=== PATIENT | male | born 1950 | race Caucasian/White ===

== ENCOUNTER 2017-04-07 08:51 | Inpatient (IN) | payer OTHER ==
[~2017-04-07] VITALS: Ht 190.5 cm; Wt 103.0 kg
[2017-04-07] VITALS (13 sets, daily range): BP systolic 107–163; BP diastolic 62–98; PULSE 59–74; RESP 11–20; O2SAT 94–96
--- NOTE | 2017-04-07 08:56 | ED.REPORT ---
HPI-General Illness Date of Service Apr 07, 2017 ED Provider: Patient is a 66-year-old man with obstructive sleep apnea CPAP compliant, hyperlipidemia, and low testosterone treated for 20 years presents to the emergency department via EMS with 9 out of 10 mid sternal chest pain that feels like a pressure which started acutely this morning. Patient's initial episode of chest pain resolved and he was planning to drive himself to the emergency department. When the chest pain returned while feeding the dogs and getting dressed he decided to call EMS. He received 1 dose of sublingual nitroglycerin and 324 mg aspirin enroute. For approximately the last week patient has had moments of tightness in his chest that started as 2-3 times daily and have been increasing. He does not notice any association with activity, and these episodes have resolved on their own. Patient denies headache, back pain, visual changes, nausea, vomiting, abdominal pain, leg tenderness, leg swelling. Nursing Notes Stated Complaint: CHEST PAIN Chief Complaint: Chest Pain Nursing Notes Reviewed: Yes Allergies: Coded Allergies: No Known Allergies (Unverified , 04/07/17) Scheduled Budesonide/Formoterol 80-4.5 mcg Inh (Symbicort 80-4.5 mcg Inh) 120 Puff Inhaler 1 PUFF INHALATION BID Cholecalciferol (Vitamin D3) (Vitamin D3) 5,000 Unit Capsule 5,000 UNIT PO HS Citalopram (Citalopram) 10 Mg Tablet 10 MG PO HS Loratadine (Loratadine) 10 Mg Capsule 10 MG PO HS Montelukast (Montelukast) 10 Mg Tablet 10 MG PO HS Omeprazole (Omeprazole) 20 Mg Capsule.dr 20 MG PO HS Tadalafil (Cialis) 10 Mg Tablet 10 MG PO DAILY As directed by physician Testosterone Cypionate (Testosterone Cypionate) 200 Mg/1 Ml Vial 200 MG IM [id number] Scheduled PRN Albuterol HFA (Proair HFA) 8.5 Gm Hfa.aer.ad 2 PUFFS INHALATION Q4H PRN PRN For Shortness of Breath General Time Seen by MD: 08:56 Chief Complaint Chest pain Hx Obtained From: Patient Arrived By: Ambulance Past Medical History Past Medical History Obstructive sleep apnea, CPAP compliant Hyperlipidemia Low testosterone, on treatment for 20 years Restless leg syndrome Depression Allergic asthma Left temporal meningioma status post resection Past Surgical History Left temporal meningioma resection 2014 Colonoscopy March 2016 Smoking History Former Smoker, Never Smoker Social History Patient's is a resident at [facility]. Alcohol Use: Denies alcohol use Drug Use: Denies drug use Ambulatory Status Independent Review of Systems A comprehensive review of systems was conducted with the patient and found to be negative except as above in the History of Present Illness. Physical Exam Vital Signs Vital Signs Date Time Temp Pulse Resp B/P Pulse Ox O2 Delivery O2 Flow Rate FiO2 04/07/17 10:56 67 17 136/78 96 04/07/17 10:19 66 13 119/77 96 Room Air 04/07/17 09:34 72 15 128/84 96 Room Air 04/07/17 08:53 36.7 74 11 126/74 94 Room Air Initial VS: Reviewed General/Constitutional: Well-developed, Well-nourished Head / Eyes: Atraumatic, Normocephalic, PERRL ENT: Mucous membranes moist, Conjunctiva normal, No scleral icterus Neck: Supple, Non-tender, Full range of motion Respiratory: Breath sounds normal, Clear to auscultation, No respiratory distress Cardiovascular: Regular rate & rhythm, Heart sounds normal, Intact distal pulses Abdomen / GI: Soft, Non-tender, No guarding, No rebound, No distention Back: No CVA tenderness Lymphatic: No lymphadenopathy Extremities: Vascular intact, Neuro intact, No swelling, No tenderness Skin: Warm, Dry, No cyanosis Neurologic: Alert, Oriented, Nonfocal Psychiatric: Mood/affect normal, Behavior normal, Normal thought content Rash / Lesion Notes: Dark pink lesion on neck just inferior to occiput, appears similar to a birthmark but patient is unaware of status. No itching, or irritation present in the area. Interpretation & Diagnostics Troponin elevated at 0.04 Lab Results Interpretation Result Diagram: 04/07/17 0918 04/07/17 0918 Test 04/07/17 09:18 White Blood Count 9.6th/mm3 (3.8-10.1) Red Blood Count 5.71mil/mm3 (4.40-5.80) Hemoglobin 16.8g/dL (13.8-17.2) Hematocrit 49.8% (41.0-50.0) Mean Corpuscular Volume 87.2fL (81-100) Mean Corpuscular Hemoglobin 29.4pg (27.0-35.0) Mean Corpuscular Hemoglobin Concent 33.7% (32.0-37.0) Red Cell Distribution Width 13.3% (12.3-15.4) Platelet Count 175bil/L (150-400) Neutrophils (%) (Auto) 75.2% (40-74) Lymphocytes (%) (Auto) 12.5% (14-46) Monocytes (%) (Auto) 11.2% (4-12) Eosinophils (%) (Auto) 0.6% (0-5) Basophils (%) (Auto) 0.3% (0-3) Sodium Level 138mEq/L (134-144) Potassium Level 4.4mEq/L (3.5-5.2) Chloride Level 100mEq/L (97-108) Carbon Dioxide Level 24mmol/L (18-29) Blood Urea Nitrogen 21mg/dL (8-27) Creatinine 1.27mg/dL (0.76-1.27) Estimat Glomerular Filtration Rate 60mL/min (>59) Glucose Level 121mg/dL (60-99) Calcium Level 9.1mg/dL (8.5-10.1) Magnesium Level 1.9mg/dL (1.6-2.6) Total Bilirubin 0.6mg/dL (0.0-1.2) Aspartate Amino Transf (AST/SGOT) 17U/L (0-50) Alanine Aminotransferase (ALT/SGPT) 20U/L (0-44) Alkaline Phosphatase 78U/L (25-160) Total Creatine Kinase 144U/L (21-232) Creatine Kinase MB 3.5ng/mL (0.0-10.4) Creatine Kinase MB % % (0.0-5.0) Troponin T 0.048ug/L (0.0-0.011) Total Protein 6.8g/dL (6.4-8.4) Albumin 3.9g/dL (3.4-5.0) Thyroid Stimulating Hormone (TSH) 1.780uIU/mL (0.450-4.500) Hold Sureo Top Tube Received (Received) ECG Interpretation ECG Interpretation: Sinus rhythm at a rate of 63 Flattening of T waves in lead III Otherwise normal ECG Time: 08:57 Interpreted by: ED physician ECG Interpretation: He was admitted a rate of 61 Inverted T waves in III Otherwise normal ECG Time: 10:15 Interpreted by: ED physician X-Ray Chest Interpretation Chest Xray Interpretation: No acute cardiopulmonary process View: Portable Interpretation / Wet Read by: Interpret - Radiologist Re-Eval/Medical Decision Med Decision/Clinical Course Patient is a 66-year-old man with obstructive sleep apnea CPAP compliant, hyperlipidemia, and low testosterone treated for 20 years presents to the emergency department via EMS with 9 out of 10 mid sternal chest pain that feels like a pressure which started acutely this morning after one week of worsening short bouts of chest tightness that self resolved. He received one sublingual nitroglycerin and 324 mg aspirin from paramedics. Differential diagnosis for acute onset chest pain includes acute coronary syndrome, pulmonary embolism Wells score 0, aortic dissection patient has equal pulses bilaterally, no tearing pain or back pain, and no widening of mediastinum on chest x-ray. Pneumothorax unlikely due to equal breath sounds bilaterally on physical exam and normal chest x-ray. On exam heart sounds are not muffled and EKG shows normal voltage making cardiac tamponade unlikely as well. Patient has had no vomiting or gastric complaints making esophageal rupture unlikely. His EKG is sinus rhythm at a rate of 63 with only mild flattening of T waves in III, subsequent EKG approximately 75 minutes later shows inverted T waves in III but is otherwise unchanged. While in the emergency department patient had recurrence of chest pain up to 3/10 with getting up to the bathroom which resolved quickly. Patient's troponin was elevated indicating NSTEMI. He was started on a heparin drip, given a loading dose of Plavix, cardiology was consulted, and patient was admitted to the hospital. Beta nataliia was not initiated at this time due to history of asthma, heart rate in the 60s, and normotension. Time of Eval: 11:40 Re-Evaluation/Progress Note: Pain is slightly improved, he rates it at half to one at this time. He was updated about course of admission, questions were answered. Consultation #1: Consulted With: Cardiology Requested Call at: 10:05 Call Returned at: 10:07 Summer Sessions Director: Will see patient, Agrees with plan Note: Discussed case with Dr. Germain of cardiology. He recommends Plavix loading dose, heparin, and admission to the hospital. Consultation #2: Referral / Consult Name: Nesha Richard MD Consulted With: Hospitalist Summer Sessions Director: Agrees with eval, Accepts admit Counseled Regarding: Diagnosis, Lab results, Need for admission Discharge & Departure Primary Impression: NSTEMI (non-ST elevated myocardial infarction) Disposition: ADMITTED TO HOSPITAL Discharge Condition All VS Reviewed: Yes Referrals: Rakesh Davidson MD (PCP) Crit Care Except Billable Proc Time Spent: 75-104 minutes Services Performed: Patient management by me, Time spent at bedside, Reviewing test results, Reviewing imaging, Discussing patient care, Documentation in record Critical Care Notes: Please see MDM. Attending Statement I saw the patient with the resident and agree with the plan and documentation as noted above. I have read it in its entirety and edited it to reflect my medical decision making and examination. copies to: Rakesh Davidson MD, William B MD Apr 07, 2017 08:56 Rachel Faye DO Apr 07, 2017 10:20
[2017-04-07] MEDS ORDERED: TADA10TA PO (09:09)
[2017-04-07] MEDS ORDERED: OMEP20CA11 PO (09:09)
[2017-04-07] MEDS ORDERED: TEST200V20 IM (09:09)
[2017-04-07] MEDS ORDERED: CHOL5000 PO (09:09)
[2017-04-07] MEDS ORDERED: VIT1TABL83 PO (09:09)
[2017-04-07] MEDS ORDERED: CITA10TA14 PO (09:09)
[2017-04-07] MEDS ORDERED: MONT10TA23 PO (09:09)
[2017-04-07] MEDS ORDERED: LORA0.5T PO (09:09)
[2017-04-07] MEDS ORDERED: ALBU8.5H2 INHALATION (09:09)
[2017-04-07] MEDS ORDERED: LORA10CA9 PO (09:09)
[2017-04-07] MEDS ORDERED: [UNRECOGNIZED DRUG - CODE] MC (09:09)
[2017-04-07] MEDS ORDERED: BUDE10.2 INHALATION (09:09)
[2017-04-07 09:24] LABS: BASOPHILS % (AUTO) 0.3 % (0-3); EOSINOPHILS % (AUTO) 0.6 % (0-5); MONOCYTES % (AUTO) 11.2 % (4-12); Mean Corpuscular Hemoglobin 29.4 pg (27.0-35.0); Mean Corpuscular Volume 87.2 fL (81-100); NEUTROPHILS % (AUTO) 75.2 % (40-74); Platelet Count 175 bil/L (150-400)
--- NOTE | 2017-04-07 09:27 | DRSVH ---
PROCEDURE: X-RAY CHEST ONE VIEW, PORTABLE ([id number]) INDICATIONS: CP TECHNIQUE: One view of the chest was acquired. COMPARISON: None. FINDINGS: Surgical changes and devices: None. Lungs and pleura: No pleural effusions or pneumothorax. Lungs are clear. Mediastinum: Mediastinal contours appear normal. Heart size is normal. Bones and chest wall: No suspicious bony lesions. Overlying soft tissues appear unremarkable. IMPRESSION: No acute cardiopulmonary disease. Dictated by: Melissa Amador M.D. on 04/07/2017 at 9:24 Approved by: Melissa Amador M.D. on 04/07/2017 at 9:24
[2017-04-07 10:02] LABS: Magnesium 1.9 mg/dL (1.6-2.6)
[2017-04-07 10:04] LABS: TROPONIN T 0.048 ug/L (0.0-0.011)
[2017-04-07] MEDS ORDERED: Heparin 5,000 Unit/mL Inj IVPUSH ONE (10:25)
[2017-04-07] MEDS ORDERED: Heparin 25K Unit/500mL 0.45 NS 25,000 UNIT in IV Premix 1 EACH IV ONE (10:25)
[2017-04-07] MEDS ORDERED: Nitroglycerin 2% 1 Gm Ointment TOPICAL SCH (11:55)
[2017-04-07] MEDS ORDERED: CITA10TA9 PO (12:03)
[2017-04-07] MEDS ORDERED: Alum-Mag Hydrox-Simeth 30 mL Suspension PO PRN ×2 (12:15→13:40)
[2017-04-07] MEDS ORDERED: Ondansetron 2 mg/mL 2 mL Inj IVPUSH PRN ×2 (12:15→13:40)
[2017-04-07] MEDS ORDERED: Senna-Docusate 8.6-50 mg Tablet PO PRN (13:40)
[2017-04-07] MEDS ORDERED: Atropine 1 mg/10 mL (Code) Syringe IVPUSH PRN (13:40)
[2017-04-07] MEDS ORDERED: Polyethylene Glycol (PEG) 17 Gm Powder PO PRN (13:40)
--- NOTE | 2017-04-07 14:00 | PCM.HPMED ---
Subjective Date of Service Apr 07, 2017 Primary Provider: Admitting Physician: Nesha Richard MD Primary Care Physician: Rakesh Davidson MD Attending Physician: Nesha Richard MD Admit Status: From the Emergency Department, Full Admit, [facility] Telemetry Chief Complaint: Intermittent chest pain times 1 week History of Present Illness: Is a 66-year-old male with a history of obstructive sleep apnea for which he uses CPAP. He also has history of low testosterone levels for which he has been on IM testosterone for about 20 years. Patient does note that he has been under a lot of stress recently as his is hospitalized as an inpatient psychiatric unit in [facility]. He notes he started to have over the past week intermittent episodes of chest pressure central lasting about 5-10 minutes at a time. Was not related to time a day or any activity. It went away spontaneously. He may have had some shortness of breath with it but denied any nausea. Denied any diaphoresis. This morning he woke up and it was much more intense 9 out of 10. He was going to drive into the emergency room but it was quite persistent and called 911. He was given a dose of sublingual mitral glycerin and 324 mg by mouth aspirin en route. Patient was also pain-free after getting the sublingual nitroglycerin. His first troponin was elevated at 0.048. His EKG showed sinus at rate of 61. No old EKGs for comparison. But no obvious acute abnormalities noted. Review of Systems: Patient does have a history of asthma but does not need to use his inhalers regularly. He does take loratadine and montelukast regularly however. Denies fevers chills or cough. Denies nausea vomiting or alteration in bowel movements. Allergies Coded Allergies: No Known Allergies (Unverified , 04/07/17) Home Medications Scheduled Budesonide/Formoterol 80-4.5 mcg Inh (Symbicort 80-4.5 mcg Inh) 120 Puff Inhaler 1 PUFF INHALATION BID Cholecalciferol (Vitamin D3) (Vitamin D3) 5,000 Unit Capsule 5,000 UNIT PO HS Citalopram (Citalopram) 10 Mg Tablet 10 MG PO HS Loratadine (Loratadine) 10 Mg Capsule 10 MG PO HS Montelukast (Montelukast) 10 Mg Tablet 10 MG PO HS Omeprazole (Omeprazole) 20 Mg Capsule.dr 20 MG PO HS Tadalafil (Cialis) 10 Mg Tablet 10 MG PO DAILY As directed by physician Testosterone Cypionate (Testosterone Cypionate) 200 Mg/1 Ml Vial 200 MG IM [id number] Scheduled PRN Albuterol HFA (Proair HFA) 8.5 Gm Hfa.aer.ad 2 PUFFS INHALATION Q4H PRN PRN For Shortness of Breath PMH Past Medical History Past Medical History Obstructive sleep apnea, CPAP compliant Hyperlipidemia Low testosterone, on treatment for 20 years Restless leg syndrome Depression Allergic asthma Left temporal meningioma status post resection Past Surgical History Left temporal meningioma resection 2014 Colonoscopy March 2016 Family History Denies any family history of coronary artery disease. Social History Hx Alcohol Use: No Hx Substance Use: No Smoking Status: Former Smoker, Never Smoker Living Arrangement: with Family Exam Vital Signs Vital Sign - Last Date Time Temp Pulse Resp B/P Pulse Ox O2 Delivery O2 Flow Rate FiO2 04/07/17 13:17 65 04/07/17 13:03 36.5 20 163/98 96 Room Air Exam Constitutional: Middle-aged male in no acute distress Head: Normocephalic atraumatic Eyes: PERRLA DC EOMI Neck: Carotids 2+ over 4 without bruits Chest: Clear to auscultation Cor: Regular rate and rhythm S1-S2 without murmur Abdomen: Soft nontender bowel sounds present Extremities: No pedal edema Skin: No rashes Psych: Mood and affect appropriate Neuro: Alert and oriented 3, motor strength is intact bilaterally Lab and Diagnostics Labs Laboratory Tests 72 Hours Test 04/07/17 09:18 White Blood Count 9.6th/mm3 (3.8-10.1) Red Blood Count 5.71mil/mm3 (4.40-5.80) Hemoglobin 16.8g/dL (13.8-17.2) Hematocrit 49.8% (41.0-50.0) Mean Corpuscular Volume 87.2fL (81-100) Mean Corpuscular Hemoglobin 29.4pg (27.0-35.0) Mean Corpuscular Hemoglobin Concent 33.7% (32.0-37.0) Red Cell Distribution Width 13.3% (12.3-15.4) Platelet Count 175bil/L (150-400) Neutrophils (%) (Auto) 75.2% (40-74) Lymphocytes (%) (Auto) 12.5% (14-46) Monocytes (%) (Auto) 11.2% (4-12) Eosinophils (%) (Auto) 0.6% (0-5) Basophils (%) (Auto) 0.3% (0-3) Activated Partial Thromboplast Time 27.5sec (22.8-33.0) Sodium Level 138mEq/L (134-144) Potassium Level 4.4mEq/L (3.5-5.2) Chloride Level 100mEq/L (97-108) Carbon Dioxide Level 24mmol/L (18-29) Blood Urea Nitrogen 21mg/dL (8-27) Creatinine 1.27mg/dL (0.76-1.27) Estimat Glomerular Filtration Rate 60mL/min (>59) Glucose Level 121mg/dL (60-99) Calcium Level 9.1mg/dL (8.5-10.1) Magnesium Level 1.9mg/dL (1.6-2.6) Total Bilirubin 0.6mg/dL (0.0-1.2) Aspartate Amino Transf (AST/SGOT) 17U/L (0-50) Alanine Aminotransferase (ALT/SGPT) 20U/L (0-44) Alkaline Phosphatase 78U/L (25-160) Troponin T 0.048ug/L (0.0-0.011) Total Protein 6.8g/dL (6.4-8.4) Albumin 3.9g/dL (3.4-5.0) Hold Suero Top Tube Received (Received) Result Diagram: 04/07/1791704/07/1718 X-Rays, CTs and MRIs Date of Service: 04/07/17 0852 PROCEDURE: X-RAY CHEST ONE VIEW, PORTABLE ([id number]) INDICATIONS: CP TECHNIQUE: One view of the chest was acquired. COMPARISON: None. FINDINGS: Surgical changes and devices: None. Lungs and pleura: No pleural effusions or pneumothorax. Lungs are clear. Mediastinum: Mediastinal contours appear normal. Heart size is normal. Bones and chest wall: No suspicious bony lesions. Overlying soft tissues appear unremarkable. IMPRESSION: No acute cardiopulmonary disease. Dictated by: Melissa Amador M.D. on 04/07/2017 at 9:24 Approved by: Melissa Amador M.D. on 04/07/2017 at 9:24 12-lead ECG See above Assessment & Plan # NSTEMI, acute, present on admission -Compliance Investigator Dr. Sebastian has been notified by ER provider regarding this patient -Recommended being placed on IV heparin cardiac protocol drip, and loading dose of Plavix -Also recommended beta nataliia therapy -We will place on nitro paste topically every 6 hours -Compliance Investigator see the patient later in the day -Serial troponins -Initiate by mouth atorvastatin and check fasting lipid panel #Obstructive sleep apnea, chronic, present on admission -Patient should use his CPAP machine while in the hospital -Patient says he is compliant with the use of his CPAP at home #History of asthma, present on admission -We will continue patient's current loratadine and montelukast as this keeps his asthma symptoms from occurring. #DVT prophylaxis -Patient is on IV heparin drip #CODE STATUS -Patient is full code VTE Prophylaxis: Other (on IV heparin drip cardiac protocol) Resuscitation Status: CPR: Attempt Resuscitation Time spent 60 minutes Nesha Richard MD Apr 07, 2017 14:00
[2017-04-07 14:32] LABS: Creatine Kinase 144 U/L (21-232)
--- NOTE | 2017-04-07 14:55 | CONS ---
[address] [address] CONSULTATION REPORT PATIENT: MELCHOR CUENCA : 1950 MR#: [id number] ADMIT: 04/07/2017 JOB ID: [id number] DATE OF SERVICE: 04/07/2017 CARDIOLOGY CONSULTATION: REQUESTING PHYSICIAN: Nesha Richard M.D. CHIEF COMPLAINT: Chest pain. 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 It got progressively worse. Him and his have been under considerable stress for the last one week. He initially ascribed all this to stress. This morning, however, he woke up with chest discomfort. It was 9/10 in severity and radiated into both his arms. He denies any associated autonomic symptoms. He called 911 and came to the emergency department. His initial troponin was elevated. EKG was unremarkable, but no acute ST-T changes. I was asked to see him in consultation. This is the first time he has noted chest discomfort. He claims to be fairly active and has been doing yoga regularly for 20 years. REVIEW OF SYSTEMS: Comprehensive review of systems was done. Pertinent negatives are noted. No GI, bleeding. No upcoming surgeries. There is a history of asthma and sleep apnea. ALLERGIES: None other than for DOGS and CATS. MEDICATIONS AT HOME: 1. Singulair p.r.n. 2. Cialis. 3. Citalopram. 4. Symbicort. 5. Testosterone. 6. P.r.n. albuterol. PAST MEDICAL HISTORY: 1. Sleep apnea. 2. Dyslipidemia. 3. Low testosterone. 4. Depression. 5. Asthma. 6. Left temporal meningioma status post in 2014. FAMILY HISTORY: Negative for premature coronary artery disease. PERSONAL HISTORY: Nonsmoker, nondrinker. PHYSICAL EXAMINATION: On examination, elderly gentleman in no apparent distress. Neck supple. No JVD. No bruit. Chest clear. Heart sounds, S1, S2. Irregular. No murmurs or gallops. Abdomen soft. Extremities negative for CCE. 2+ posterior tibial bilaterally. CASEWORK MANAGER: Alert and oriented x3. LABORATORY DATA: Is noted. Hemoglobin is 16.8. Creatinine is 1.27. Troponin, as mentioned, was elevated. IMAGING: Chest x-ray unremarkable. ASSESSMENT AND PLAN: This gentleman presented with a non-ST elevation myocardial infarction. He has been loaded with Plavix. He has been started on beta blockers and he is getting heparin via IV drip. He is also going to be started on statins. He is on GDT. We discussed the option of coronary angiography versus medical treatment. The patient would like to think about it. He is currently n.p.o. Should he decide soon I will do the angiogram today, otherwise tomorrow. I thank you for letting met involved in his case.
--- NOTE | 2017-04-07 15:00 | NUR ---
Admission Patient arrived on unit via gurney. Patient arrived with a Heparin drip. Patient reports he was having some chest pain this morning, it went away, but returned and he called 911. Patient was given Nitro by EMS and his pain resolved. Nitro patch administered per hospitalist order. Patient seen in room by Dr Jo and has consented to go to the cathead operator tomorrow morning. Patient alert and oriented x4. Patient was admitted to [facility] 2 mo ago where she currently remains and patient reports he has been under increased stress as a result. Nitro patch is on Patient Lt chest. Addendum: 04/07/17 at 1801 by LATA OWENS RN PTT results 51.6. Heparin drip increased to 20.5 ml/hr. verified by Glenny Skaggs
[2017-04-07] MEDS: Nitroglycerin 2% 1 Gm Ointment TOPICAL SCH ×2 (15:43→21:25)
[2017-04-07] MEDS: 0.9% Sodium Chloride 1,000 ML IV SCH (15:47)
[2017-04-07] MEDS ORDERED: Albuterol 2.5 mg/3 mL Inhalation Solution NEB PRN ×2 (16:00→17:30)
[2017-04-07] MEDS: Sodium Chloride LOK Flush 10 mL Syringe IVFLUSH SCH ×2 (16:30→21:22)
[2017-04-07] MEDS ORDERED: Heparin 25K Unit/500mL 0.45 NS 25,000 UNIT in IV Premix 1 EACH IV SCH (17:55)
[2017-04-07] MEDS ORDERED: Heparin 5,000 Unit/mL Inj IVPUSH PRN (17:55)
[2017-04-07 21:07] LABS: Creatine Kinase 134 U/L (21-232); TROPONIN T 0.026 ug/L (0.0-0.011)
[2017-04-07] MEDS: Pantoprazole 40 mg ER24 Tablet PO SCH (21:24)
[2017-04-08] VITALS (18 sets, daily range): BP systolic 96–128; BP diastolic 41–69; PULSE 49–77; RESP 13–20; O2SAT 92–96
[2017-04-08] MEDS: 0.9% Sodium Chloride 1,000 ML IV SCH ×2 (02:57→14:38)
[2017-04-08] MEDS: Nitroglycerin 2% 1 Gm Ointment TOPICAL SCH ×5 (02:57→21:05)
[2017-04-08 03:16] LABS: APPEARANCE,URINE CLEAR (CLEAR,HAZY); COLOR,URINE YELLOW (YELLOW); OCCULT BLOOD,URINE NEGATIVE (NEGATIVE); PH,URINE 5.5 (5.0-8.0); UROBILINOGEN,URINE NORMAL (NORMAL)
--- NOTE | 2017-04-08 05:19 | NUR ---
Heparin Drip Pt on cardiac protocol heparin gtt, currently infusing at 1125units/hr. Per report from daytime RN and patient report, plan is for patient to go to lab nurse on 04/08. MD and on-call child psychometrist paged for orders on stopping the heparin gtt in preparation for lab nurse; per Dr. Wadsworth, heparin gtt to be continued until approx. 0700, and to call Dr. Germain at that time for further instructions. VSS, tele SB 50s-60s. No c/o pain. Pt able to rest intermittently, though patient reports not very restful sleep.
[2017-04-08 06:12] LABS: BASOPHILS % (AUTO) 0.4 % (0-3); EOSINOPHILS % (AUTO) 1.5 % (0-5); Mean Corpuscular Hemoglobin 29.8 pg (27.0-35.0); Mean Corpuscular Volume 87.8 fL (81-100); NEUTROPHILS % (AUTO) 69.9 % (40-74); Platelet Count 152 bil/L (150-400)
[2017-04-08] MEDS ORDERED: Heparin 1,000 Units/500 mL NS Premix IV ONE (07:36)
[2017-04-08] MEDS ORDERED: Heparin 10,000 Unit/1,000 mL NS Premix IV ONE (07:36)
[2017-04-08] MEDS ORDERED: Nitroglycerin 50,000 mcg/250 mL D5W Premix IV ONE (07:36)
[2017-04-08] MEDS: Sodium Chloride LOK Flush 10 mL Syringe IVFLUSH SCH (07:52)
[2017-04-08] MEDS ORDERED: fentaNYL-PF 50 mCg/mL 2 mL Inj ONE (08:57)
--- NOTE | 2017-04-08 09:07 | NUR ---
Off unit Pt off unit at 0830 to cath lab radiology technician with staff. BG was 99, A&Ox3, vitals stable. Report given to cath lab radiology technician staff at bedside. Report called to [facility] staff just now. centrifugal chiller technician aware. Addendum: 04/08/17 at 1228 by JENNIFER CROWELL RN Back to unit at 1230. Vitals stable, A&Ox3, no c/o pain, right groin soft and non tender, minimal ooze. centrifugal chiller technician aware and pt is SR 62.
[2017-04-08] MEDS ORDERED: NitroPRUSSIDE 25,000 mCg/mL 2 mL Inj IV ONE (09:09)
[2017-04-08] MEDS ORDERED: Heparin 1,000 Unit/mL 10 mL Inj ONE (09:09)
[2017-04-08] MEDS ORDERED: 0.9% Sodium Chloride 250 ML ONE (09:09)
[2017-04-08] MEDS ORDERED: Atropine 1 mg/10 mL (Code) Syringe ONE (09:25)
--- NOTE | 2017-04-08 10:16 | DRSVH ---
[facility] [address] [place] [address] Echocardiogram Report Name: HEAD, MELCHOR Hannon te: 04/07/2017 Height: 75 in Hospital Exam Location: [facility] Weight: 227 lb Gender: Male BSA: 2.3 m2 : 1950 Age: 66 yrs BP: 163/98 mmHg Reason For Study: CAD Ordering Physician: Performed By: Bart Morris Referring Physician: JARON GERMAIN Interpretation Summary The left ventricle is normal in size. The ejection fraction is estimated to be 50-55%. Mild distal septal and inferoapical hypokinesis There is no significant valvular heart disease. Procedure: A two-dimensional transthoracic echocardiogram with color flow and Doppler was performed. The study quality was technically adequate. There is no prior echocardiogram noted for this patient. The patient was in normal sinus rhythm during the exam. The heart rate ranged between 57-64 bpm during the study. Left Ventricle: The left ventricle is normal in size. There is mild concentric left ventricular hypertrophy. The ejection fraction is estimated to be 50-55%. Mild distal septal and inferoapical hypokinesis. Assessment of diastolic parameters indicates normal left ventricular diastolic function and normal filling pressures. Right Ventricle: The right ventricle is normal in size, thickness and function. Atria: The left atrial size is normal. Right atrial size is normal. The interatrial septum is intact with no evidence for an atrial septal defect. Mitral Valve: The mitral valve leaflets appear borderline thickened, but open well. There is trace mitral regurgitation. Aortic Valve: The aortic valve is normal in structure and function. No aortic regurgitation is present. Tricuspid Valve: The tricuspid valve is normal. There is a trace or physiologic amount of tricuspid regurgitation. Pulmonary artery pressures cannot be estimated because of the lack of a measurable TR jet velocity. Pulmonic Valve: The pulmonic valve leaflets are thin and pliable; valve motion is normal. There is mild pulmonic regurgitation. Great Vessels: The aortic root is normal size. The dimensions of the ascending aorta are normal. The pulmonary artery is normal size. The inferior vena cava was not well visualized. Pericardium/ Pleura There is no pericardial effusion. There is no pleural effusion. MMode/2D Measurements & Calculations LVIDd: 5.0 cm RA long axis LVOT diam LVIDs: 3.6 cm LA A2 area: 20.9 cm FS: 29.0 % LA A4 area: 18.9 cm RA area AoV Opening EPSS: 1.1 cm LA length (vol): 5.4 cm IVSd: 1.2 cm LA vol: 62.2 ml : 14.0 cm Ao root diam LVPWd: 1.2 cm LA vol index RA vol : 31.6 ml asc Aorta : 26.9 ml/m2 RA Diam: 3.5 cm : 13.7 mm2 LV bustamante. diameter/BSA LV sys. diameter/BSA TAPSE: 2.4 cm (cm/m^2): 2.2 (cm/m^2): 1.5 Doppler Measurements & Calculations Ao V2 max: 130.8 cm/secMV E max saeid MV E/A: 0.61 PA V2 max Ao max P.8 mmHg : 39.2 cm/sec Med Peak E' Saeid : 84.6 cm/sec Ao mean P.7 mmHg MV A max saeid PA mean PG LVOT Max Saeid : 63.9 cm/sec E/E' med: 8.2 : 1.8 mmHg : 89.1 cm/sec Lat Peak E' Saeid SHONDA(I,D): 3.5 cm sev ratio: 0.66 E/E' lat: 6.2 E/e' average: 7.2 MV dec time: 0.43 sec Ao V2 mean LV V1 max PG PA V2 mean : 92.0 cm/sec : 63.5 cm/sec Ao V2 VTI: 24.2 cmLV V1 VTI: 16.0 cm SHONDA(V,D): 3.6 cm2 SHONDA indexed to [facility] (cm^2/m^2): 1.5 Electronically signed by: Jaron Germain on Reading Physician:04/08/2017 10:15 AM
--- NOTE | 2017-04-08 13:26 | DI95 ---
[address] [address] INTERVENTIONAL CARDIAC CATHETERIZATION PATIENT: JOELLEN, MELCHOR Collado : 1950 MR#: [id number] ADMIT: 04/07/2017 JOB ID: [id number] DATE OF SERVICE: 04/08/2017 PROCEDURE: Selective right and left coronary angiography, left heart catheterization, percutaneous intervention on the LAD. INDICATION: Asp-SU-lsgnbrqvu OH. PROCEDURAL DETAILS: The reader and the coders are referred to the procedure log for complete details. Briefly, it was done via right femoral approach using a 6-Turkmen system. ANGIOGRAPHIC FINDINGS: 1. Left main: No significant disease. 2. LAD in its mid portion at the takeoff of the first major diagonal has a tight thrombotic-appearing 90% percent lesion. LARA-2 flow is seen distally. This lesion involves the takeoff of the diagonal as well. 3. Right coronary artery is a large, dominant vessel. In its proximal to mid segment, there appears to be either an aneurysm coming off a small RV branch for a small branch vessel supplying a vascular mass which appears to be in the right atrium. 4. Left heart catheterization revealed apical hypokinesis. EF is otherwise preserved. Estimated to be around 50%. INTERVENTIONAL REPORT: We then did an intervention on the LAD. A Runthrough wire was used guide. We balloon angioplastied the LAD. Stenting was deliberately avoided. There was about a 30% residual but overall good results from plain old balloon angioplasty. The patient will have a cardiac MRI to evaluate the aforementioned structure, and that is the reason why he did not get a stent. If he needs Cardiac surgery, I would delay it by subjecting the patient to dual-antiplatelet therapy.
--- NOTE | 2017-04-08 14:16 | PCM.PNMED ---
Subjective Date of Service Apr 08, 2017 Subjective Pt underwent cardiac cath, tolerated well, denied chest pain Exam Vital Signs Vital Sign - Last Date Time Temp Pulse Resp B/P Pulse Ox O2 Delivery O2 Flow Rate FiO2 04/08/17 12:26 60 16 119/67 95 Room Air 04/08/17 07:57 36.9 Intake and Output 04/07/17 04/07/17 04/08/17 Cumulative From/Thru 15:00 23:00 07:00 04/07/17 08:53 - 04/08/17 06:18 Intake Total 315 ml 1202 ml 1517 ml Balance 315 ml 1202 ml 1517 ml Intake IV Total 315 ml 1202 ml 1517 ml Exam NAD, comfortably laying down on the bed no JVD, MMM, no LAD RRR, nl s1, s2 no mrg CTAB, no w,c S,ND,NT,normoactive BS+ Rt groin, no hematoma, pulses+, no bruit, pulses 2/2 on DP IVs and Medications Medications Reviewed: Medications were reviewed in detail Lab and Diagnostics Result Diagram: 04/08/17 0545 04/08/17 0545 X-Rays, CTs and MRIs Date of Service: 04/07/17 0852 PROCEDURE: X-RAY CHEST ONE VIEW, PORTABLE ([id number]) INDICATIONS: CP TECHNIQUE: One view of the chest was acquired. COMPARISON: None. FINDINGS: Surgical changes and devices: None. Lungs and pleura: No pleural effusions or pneumothorax. Lungs are clear. Mediastinum: Mediastinal contours appear normal. Heart size is normal. Bones and chest wall: No suspicious bony lesions. Overlying soft tissues appear unremarkable. IMPRESSION: No acute cardiopulmonary disease. Dictated by: Melissa Amador M.D. on 04/07/2017 at 9:24 Approved by: Melissa Amador M.D. on 04/07/2017 at 9:24 12-lead ECG See above Assessment & Plan acute, active # NSTEMI, acute, present on admission, pt underwent cardiac cath on 04/08 showed LAD 90% lesion, required PCI by E M Assembler Dr. Sebastian -appreciate follow up -awaits cardiac MRI due to structure of coronary vessels, possible stent based on the result. -continue IV heparin cardiac protocol drip, and loading dose of Plavix, beta nataliia, statin -nitro paste topically every 6 hours chronic, stable #Obstructive sleep apnea, chronic, present on admission -Patient should use his CPAP machine while in the hospital -Patient says he is compliant with the use of his CPAP at home #History of asthma, present on admission -We will continue patient's current loratadine and montelukast as this keeps his asthma symptoms from occurring. #DVT prophylaxis -Patient is on IV heparin drip #CODE STATUS -Patient is full code dispo: likely home tomorrow VTE Prophylaxis: Other (on IV heparin drip cardiac protocol) Resuscitation Status: CPR: Attempt Resuscitation Time spent 35min Yoli Kirby MD Apr 08, 2017 12:45
--- NOTE | 2017-04-08 14:17 | NUR ---
Social Work: Initial Assessment Data: Pt is a 66 y/o male admitted for nstemi. Pt's PCP is Dr Davidson, pt's insurance is [employer]. EMR reviewed, pt discussed in multidisciplinary rounds. MD states pt likely to d/c tomorrow. MASTER CONTROL SUPERVISOR met with pt at bedside, role explained. Pt states that he lives alone on [address] in a single story home where he uses no DME. Pt drives, has no hx of HH or SNF, no LTC or VA benefits, and is not a caregiver. Pt reports that his is currently in a mental health hospital and he expects that she will likely not be able to return to his home, prior to this she lived with him. No D/C planning needs anticiapted at this time. MASTER CONTROL SUPERVISOR will continue to follow if needs arise. Assessment: Pt who is independent at baseline, currently capable of self care. Plan: Pt will d/c home via POV with friend when medically stable. MASTER CONTROL SUPERVISOR will continue to follow. JOSE J Ha Addendum: 04/08/17 at 1419 by SAILAJA BABIN Amended: Links added.
[2017-04-08] MEDS ORDERED: 0.9% Sodium Chloride 250 ML BOLUS IV PRN (15:45)
[2017-04-08] MEDS ORDERED: Sodium Chloride LOK Flush 10 mL Syringe IVFLUSH PRN (15:45)
[2017-04-08] MEDS ORDERED: Atropine 1 mg/10 mL (Code) Syringe IVPUSH PRN (15:45)
[2017-04-08] MEDS ORDERED: 0.9% Sodium Chloride 400 ML (4 HRS) IV ONE (15:45)
[2017-04-08] MEDS ORDERED: Ondansetron 2 mg/mL 2 mL Inj IVPUSH PRN (15:45)
[2017-04-08] MEDS: Pantoprazole 40 mg ER24 Tablet PO SCH (20:32)
[2017-04-09 00:53] VITALS: BP 116/65; PULSE 59; RESP 16; O2SAT 92
[2017-04-09 06:06] LABS: BASOPHILS % (AUTO) 0.3 % (0-3); EOSINOPHILS % (AUTO) 1.9 % (0-5); Mean Corpuscular Hemoglobin 30.2 pg (27.0-35.0); Mean Corpuscular Volume 88.8 fL (81-100); NEUTROPHILS % (AUTO) 58.9 % (40-74); Platelet Count 166 bil/L (150-400)
[2017-04-09 06:08] VITALS: BP 127/75; PULSE 63; RESP 16; O2SAT 94
--- NOTE | 2017-04-09 06:20 | NUR ---
Activity Ambulating in room and halls without any noted issues. Tele SR without CP. Denies LONG or at rest. Currently resting in bed without any complaints.
[2017-04-09 06:22] VITALS: PULSE 60
[2017-04-09 07:46] VITALS: BP 126/76; PULSE 58; RESP 16; O2SAT 95
[2017-04-09] MEDS: Nitroglycerin 2% 1 Gm Ointment TOPICAL SCH (07:52)
[2017-04-09 08:54] VITALS: PULSE 60
[2017-04-09] MEDS ORDERED: NITR0.4T SL (10:46)
[2017-04-09] MEDS ORDERED: METO25TA6 PO (10:46)
[2017-04-09] MEDS ORDERED: ATOR40TA69 PO (10:46)
[2017-04-09] MEDS ORDERED: LISI-571 PO (10:46)
[2017-04-09] MEDS ORDERED: CLOP75TA28 PO (10:46)
[2017-04-09] MEDS ORDERED: ASPI81TA3 PO (10:48)
--- NOTE | 2017-04-09 10:54 | PCM.DIMED ---
Discharge Instructions Date of Service Apr 09, 2017 Dates of Hospitalization Apr 07, 2017 at 11:27 Discharge Diagnosis Discharge Diagnosis NSTEMI Medication Instructions Additional med instructions NEW regimen for heart started your heart metoprolol 12.5mg twice a day aspirin 81mg daily plavix 75mg daily atorvastatin 40mg daily Nitroglycerin under your tongue, you can take it for acute chest pain Please note that YOU SHOULD NOT TAKE CIALIS WHEN YOU TAKE NITROGLYCERIN FOR CHEST PAIN, IT WILL LOWER BLOOD PRESSURE SIGNIFICANTLY Diet Discharge Diet: Low fat, Low Sodium, Heart Healthy Activity Discharge Activity: No restrictions Call your provider Call your provider for: Chest pain Patient Instructions Patient Instructions You were hospitalized with heart attack, required intervention on your blood vessels on your heart. Please note that you are scheduled for Cardiac MRI for further structure evaluation of your blood vessels, likely needs stent placement based on the result. Please follow up with as scheduled Please follow medication instruction as above Follow-up Provider: Adebayo Germain MD Follow-up with PCP in: 1 week Yoli Kirby MD Apr 09, 2017 10:54
--- NOTE | 2017-04-09 11:12 | NUR ---
Social Work-discharge: Data:EMR reviewed. Pt is on day 2 of hospitalization for N stemi per H&P. Pt is medically stable for discharge. Per RN notes, pt has been up independent in his room. Pt to have MRI done as an outpt. No SW needs identified. All updated and agreeable to plan. Assessment:Pt who is independent at baseline. Plan:Pt to discharge home today via POV. No SW needs identified. All updated and agreeable to plan. JOSE J Rivera
--- NOTE | 2017-04-09 12:50 | NUR ---
Discharge Pt. was discharged to home and Pt. took all his belongings from room [address] [facility] [place]. Pt. was given educational material on new prescriptions, atorvastatin, clopidogrel, lisinopril, metoprolol, and nitroglycerin. Pt. was also instructed to go to the diagnostic imaging on Tuesday;y 31 at 0900 for a cardiac MRI. Pt. was also told to follow up with Dr. Germain's office on may 02 check in time 0945. Pt. stated he would go to both. IV DC'D x2 asymptomatic and intact. Pt. right groin site non-tender, soft on palpation and does not hurt when Pt. ambulates, no swelling as well.
--- NOTE | 2017-04-09 13:54 | PCM.DC.MED ---
Discharge Summary Date of Service Apr 09, 2017 Dates of Hospitalization Date of Hospital Admission Apr 07, 2017 at 11:27 Date of Discharge: Apr 09, 2017 Providers: Admitting Physician: Nesha Richard MD Primary Care Physician: Rakesh Davidson MD Attending Physician: Yoli Steele MD Diagnosis at Time of Discharge Diagnosis at Time of Discharge acute dx # NSTEMI, chronic dx #Obstructive sleep apnea #History of asthma Consultations cardiology Procedures XRay, CTs & MRIs Date of Service: 04/07/17 0852 PROCEDURE: X-RAY CHEST ONE VIEW, PORTABLE ([id number]) INDICATIONS: CP TECHNIQUE: One view of the chest was acquired. COMPARISON: None. FINDINGS: Surgical changes and devices: None. Lungs and pleura: No pleural effusions or pneumothorax. Lungs are clear. Mediastinum: Mediastinal contours appear normal. Heart size is normal. Bones and chest wall: No suspicious bony lesions. Overlying soft tissues appear unremarkable. IMPRESSION: No acute cardiopulmonary disease. Dictated by: Melissa Amador M.D. on 04/07/2017 at 9:24 Approved by: Melissa Amador M.D. on 04/07/2017 at 9:24 ECG 12 Lead NSR Brief History HPI obtained by on 04/07 Is a 66-year-old male with a history of obstructive sleep apnea for which he uses CPAP. He also has history of low testosterone levels for which he has been on IM testosterone for about 20 years. Patient does note that he has been under a lot of stress recently as his is hospitalized as an inpatient psychiatric unit in [facility]. He notes he started to have over the past week intermittent episodes of chest pressure central lasting about 5-10 minutes at a time. Was not related to time a day or any activity. It went away spontaneously. He may have had some shortness of breath with it but denied any nausea. Denied any diaphoresis. This morning he woke up and it was much more intense 9 out of 10. He was going to drive into the emergency room but it was quite persistent and called 911. He was given a dose of sublingual mitral glycerin and 324 mg by mouth aspirin en route. Patient was also pain-free after getting the sublingual nitroglycerin. His first troponin was elevated at 0.048. His EKG showed sinus at rate of 61. No old EKGs for comparison. But no obvious acute abnormalities noted. Hospital Course acute dx #NSTEMI, pt showed no chg on EKG but positive troponin. pt was started on heparin gtt, loaded with aspirin, plavix. also started statin, BB, ACEI. pt underwent cardiac cath on 04/08 showed LAD 90% lesion, required PCI by Active Directory Architect Dr. Sebastian. Based on coronary anatomy, Stent was not placed. Plan was to proceed with Cardiac MRI on next Tuesday and follow up with for possible stent placement in the future. pt remained asymptomatic on d/c, deemed safe for d/c chronic dx #Obstructive sleep apnea,stable #History of asthma,stable on home med Exam Vital Signs (Last) Date Time Temp Pulse Resp B/P Pulse Ox O2 Delivery O2 Flow Rate FiO2 04/09/17 08:54 60 04/09/17 07:46 36.7 16 126/76 95 Room Air Exam pt was examined on the day of d/c Test 04/07/17 09:18 04/07/17 18:00 04/08/17 03:05 04/08/17 05:45 Hemoglobin A1c 5.8% (4.8-5.6) Magnesium Level 1.9mg/dL (1.6-2.6) Thyroid Stimulating Hormone (TSH) 1.780uIU/mL (0.450-4.500) Hold Suero Top Tube Received (Received) Total Creatine Kinase 134U/L (21-232) Creatine Kinase MB 3.2ng/mL (0.0-10.4) Creatine Kinase MB % % (0.0-5.0) Troponin T 0.026ug/L (0.0-0.011) Urine Color Yellow (YELLOW) Urine Appearance Clear (CLEAR,HAZY) Urine pH 5.5 (5.0-8.0) Urine Specific Tilly 1.015 (1.003-1.035) Urine Protein Negativemg/dL (NEG,TRACE) Urine Glucose (UA) Negativemg/dL (NEGATIVE) Urine Ketones Negativemg/dL (NEGATIVE) Urine Occult Blood Negative (NEGATIVE) Urine Nitrite Negative (NEGATIVE) Urine Bilirubin Negative (NEGATIVE) Urine Urobilinogen Normalmg/dL (NORMAL) Urine Leukocyte Esterase Trace (NEGATIVE) Urine RBC 0-2/hpf (0-2) Urine WBC 0-5/hpf (0-5) Urine Epithelial Cells Occasional/hpf (NONE-MOD) Urine Crystals None seen (NONE SEEN) Urine Bacteria Few/hpf (NONE-FEW) Urine Hyaline Casts None/lpf (NONE) Urine Granular Casts None seen (NONE SEEN) Urine Waxy Casts None seen (NONE SEEN) Urine Red Blood Cell Casts None seen (NONE SEEN) Urine White Blood Cell Casts None seen (NONE SEEN) Urine Mucus None seen (None Seen) Urine Trichomonas None seen (NONE SEEN) Urine Yeast None (NONE SEEN) Urinalysis Comment None Urine Culture Reflexed Indicated Triglycerides Level 69mg/dL (0-149) Cholesterol Level 151mg/dL (100-199) LDL Cholesterol, Calculated 100.200mg/dL (0-99) VLDL Cholesterol 13.800mg/dL HDL Cholesterol 37mg/dL (>39) Cholesterol/HDL Ratio 4.08 (0.0-4.4) Test 04/08/17 12:35 04/09/17 04:54 Activated Partial Thromboplast Time 57.4sec (22.8-33.0) White Blood Count 8.6th/mm3 (3.8-10.1) Red Blood Count 5.26mil/mm3 (4.40-5.80) Hemoglobin 15.9g/dL (13.8-17.2) Hematocrit 46.7% (41.0-50.0) Mean Corpuscular Volume 88.8fL (81-100) Mean Corpuscular Hemoglobin 30.2pg (27.0-35.0) Mean Corpuscular Hemoglobin Concent 34.0% (32.0-37.0) Red Cell Distribution Width 13.5% (12.3-15.4) Platelet Count 166bil/L (150-400) Neutrophils (%) (Auto) 58.9% (40-74) Lymphocytes (%) (Auto) 25.6% (14-46) Monocytes (%) (Auto) 13.0% (4-12) Eosinophils (%) (Auto) 1.9% (0-5) Basophils (%) (Auto) 0.3% (0-3) Sodium Level 139mEq/L (134-144) Potassium Level 4.6mEq/L (3.5-5.2) Chloride Level 103mEq/L (97-108) Carbon Dioxide Level 24mmol/L (18-29) Blood Urea Nitrogen 22mg/dL (8-27) Creatinine 1.27mg/dL (0.76-1.27) Estimat Glomerular Filtration Rate 60mL/min (>59) Glucose Level 96mg/dL (60-99) Calcium Level 9.0mg/dL (8.5-10.1) Total Bilirubin 0.7mg/dL (0.0-1.2) Aspartate Amino Transf (AST/SGOT) 25U/L (0-50) Alanine Aminotransferase (ALT/SGPT) 18U/L (0-44) Alkaline Phosphatase 76U/L (25-160) Total Protein 6.6g/dL (6.4-8.4) Albumin 3.8g/dL (3.4-5.0) Discharge Medications Discharge Medications Aspirin Chew (Aspirin Chew) 81 Mg Chew 81 MG PO DAILY Prescribed by: YOLI STEELE MD Atorvastatin Calcium (Atorvastatin Calcium) 40 Mg Tablet 40 MG PO HS Prescribed by: YOLI STEELE MD Budesonide/Formoterol 80-4.5 mcg Inh (Symbicort 80-4.5 mcg Inh) 120 Puff Inhaler 1 PUFF INHALATION BID (Reported) Cholecalciferol (Vitamin D3) (Vitamin D3) 5,000 Unit Capsule 5,000 UNIT PO HS ( Reported) Citalopram (Citalopram) 10 Mg Tablet 10 MG PO HS (Reported) Clopidogrel (Clopidogrel) 75 Mg Tablet 75 MG PO DAILY Prescribed by: YOLI STEELE MD Lisinopril (Lisinopril) 5 Mg Tablet 2.5 MG PO BID Prescribed by: YOLI STEELE MD Loratadine (Loratadine) 10 Mg Capsule 10 MG PO HS (Reported) Metoprolol Tartrate (Metoprolol Tartrate) 25 Mg Tablet 12.5 MG PO Q12 Prescribed by: YOLI STEELE MD Montelukast (Montelukast) 10 Mg Tablet 10 MG PO HS (Reported) Omeprazole (Omeprazole) 20 Mg Capsule.dr 20 MG PO HS (Reported) Testosterone Cypionate (Testosterone Cypionate) 200 Mg/1 Ml Vial 200 MG IM f2dyvmc (Reported) As needed Albuterol HFA (Proair HFA) 8.5 Gm Hfa.aer.ad 2 PUFFS INHALATION Q4H PRN PRN For Shortness of Breath (Reported) Nitroglycerin SL (Nitrostat) 0.4 Mg Tab.subl 0.4 MG SL Q5MIN PRN PRN For Chest Pain IF SBP > 90 Prescribed by: YOLI STEELE MD Additional med instructions NEW regimen for heart started your heart metoprolol 12.5mg twice a day aspirin 81mg daily plavix 75mg daily atorvastatin 40mg daily Nitroglycerin under your tongue, you can take it for acute chest pain Please note that YOU SHOULD NOT TAKE CIALIS WHEN YOU TAKE NITROGLYCERIN FOR CHEST PAIN, IT WILL LOWER BLOOD PRESSURE SIGNIFICANTLY Followup Plan Disposition: home Discharge Diet: Low fat, Low Sodium, Heart Healthy Discharge Activity: No restrictions Patient Instructions You were hospitalized with heart attack, required intervention on your blood vessels on your heart. Please note that you are scheduled for Cardiac MRI for further structure evaluation of your blood vessels, likely needs stent placement based on the result. Please follow up with as scheduled Please follow medication instruction as above Follow-up Provider: Adebayo Germain MD Follow-up with PCP in: 1 week Time spent 65min Yoli Steele MD Apr 09, 2017 13:54
== END 2017-04-09 12:52 | disposition home or self-care (01) | DRG 251 ==
LOC: EDUNIT# 08:51 → EDBD 08:51 → SED 08:51 → MPC 11:27
PROVIDERS: ADMIT Specialist; ATTEND Internal Medicine
PROC: 02703ZZ Dilation of Coronary Artery, One Artery, Percutaneous Approach (ICD-10-PCS; principal; 2017-04-08)
PROC: 4A023N7 Measurement of Cardiac Sampling and Pressure, Left Heart, Percutaneous Approach (ICD-10-PCS; 2017-04-08)
PROC: B2111ZZ Fluoroscopy of Multiple Coronary Arteries using Low Osmolar Contrast (ICD-10-PCS; 2017-04-08)
PROC: B2151ZZ Fluoroscopy of Left Heart using Low Osmolar Contrast (ICD-10-PCS; 2017-04-08)
DX: I21.4 Non-ST elevation (NSTEMI) myocardial infarction (principal); G47.33 Obstructive sleep apnea (adult) (pediatric); E78.5 Hyperlipidemia, unspecified; J45.909 Unspecified asthma, uncomplicated; G25.81 Restless legs syndrome; Z79.82 Long term (current) use of aspirin; Z79.51 Long term (current) use of inhaled steroids; Z87.891 Personal history of nicotine dependence

== ENCOUNTER 2017-05-18 17:31 | Emergency (ER) | payer OTHER ==
[~2017-05-18] VITALS: Ht 190.5 cm; Wt 100.5 kg
[~2017-05-18 17:31] MED LIST: ALBU8.5H2 INHALATION; ASPI81TA3 PO; ATOR40TA69 PO; BUDE10.2 INHALATION; CHOL5000 PO; CITA10TA9 PO; CLOP75TA28 PO; LISI-571 PO; LORA10CA9 PO; METO25TA6 PO; MONT10TA23 PO; NITR0.4T SL; OMEP20CA11 PO; TEST200V20 IM
[2017-05-18 17:35] VITALS: BP 131/78; PULSE 86; RESP 18; O2SAT 96
--- NOTE | 2017-05-18 17:52 | ED.REPORT ---
HPI-General Illness Date of Service May 18, 2017 ED Provider: Trevor Abbott MD Pt is a 66 year old male with a hx of recent MN brought by cardiac rehab recovering from an NSTEMI 3.5 weeks ago during which time he had an angioplasty (he is told that he will need stents in the future about these have not been placed yet.) Pt feels weak and increasingly tired ever since discharge and he attributes this to starting multiple new medications. Denies fever, chills, palpitations, SOB, wheezing, CP, syncope, nausea or vomiting. Pt has been taking 25 mg daily Metoprolol since he was discharged. He reports that he sleeps 12 hours a day and has naps in between. He says that he feels generally groggy and low energy. Pt was recently started on Metoprolol, clopidogrel, lisinopril, atorvastatin and Aspirin. Nursing Notes Stated Complaint: FATIGUE/BROUGHT BY CARDIAC REHAB Chief Complaint: General Complaint Nursing Notes Reviewed: Yes Allergies: Coded Allergies: No Known Allergies (Unverified , 04/07/17) Scheduled Aspirin Chew (Aspirin Chew) 81 Mg Chew 81 MG PO DAILY Atorvastatin Calcium (Atorvastatin Calcium) 40 Mg Tablet 40 MG PO HS Budesonide/Formoterol 80-4.5 mcg Inh (Symbicort 80-4.5 mcg Inh) 120 Puff Inhaler 1 PUFF INHALATION BID Cholecalciferol (Vitamin D3) (Vitamin D3) 5,000 Unit Capsule 5,000 UNIT PO HS Citalopram (Citalopram) 10 Mg Tablet 10 MG PO HS Clopidogrel (Clopidogrel) 75 Mg Tablet 75 MG PO DAILY Lisinopril (Lisinopril) 5 Mg Tablet 2.5 MG PO BID Loratadine (Loratadine) 10 Mg Capsule 10 MG PO HS Metoprolol Succinate ER (Metoprolol Succinate ER) 25 Mg Tab.er.24h 12.5 MG PO DAILY Montelukast (Montelukast) 10 Mg Tablet 10 MG PO HS Omeprazole (Omeprazole) 20 Mg Capsule.dr 20 MG PO HS Testosterone Cypionate (Testosterone Cypionate) 200 Mg/1 Ml Vial 200 MG IM [id number] Scheduled PRN Albuterol HFA (Proair HFA) 8.5 Gm Hfa.aer.ad 2 PUFFS INHALATION Q4H PRN PRN For Shortness of Breath Nitroglycerin SL (Nitrostat) 0.4 Mg Tab.subl 0.4 MG SL Q5MIN PRN PRN For Chest Pain IF SBP > 90 General Time Seen by MD: 17:43 Chief Complaint Other (Fatigue) Hx Obtained From: Patient Arrived By: Walk-in Sudden in Onset?: No Onset Occurred: More than a week ago... (3 weeks) Symptom Duration: Since onset Severity: Current: No pain currently Severity: Maximum: No pain Recent Healthcare: No recent hospitalization, Recent doctor visit Similar Sx Previous: No Past Medical History Past Medical History Recent NSTEMI 3.5 weeks ago Obstructive sleep apnea, CPAP compliant Hyperlipidemia Low testosterone, on treatment for 20 years Restless leg syndrome Depression Allergic asthma Left temporal meningioma status post resection Past Surgical History Left temporal meningioma resection 2014 Colonoscopy March 2016 Smoking History Former Smoker, Never Smoker Social History Patient's is a resident at [facility]. Alcohol Use: Denies alcohol use Drug Use: Denies drug use Ambulatory Status Independent Review of Systems Full Review of Systems Constitutional: Reports: Fatigue, Denies: Chills, Fever Respiratory: Denies: Shortness of breath, Wheezing Cardiovascular: Denies: Chest pain, Palpitations GI: Denies: Nausea, Vomiting Neurologic: Reports: Weakness, Denies: Syncope Complete sys rev & neg: except as marked. Physical Exam Vital Signs Vital Signs Date Time Temp Pulse Resp B/P Pulse Ox O2 Delivery O2 Flow Rate FiO2 05/18/17 20:08 72 20 131/75 97 Room Air 05/18/17 19:18 68 18 110/67 95 Room Air 05/18/17 17:35 86 18 131/78 96 Initial VS: Reviewed General/Constitutional: Well-developed, Well-nourished Head / Eyes: Atraumatic, Normocephalic, PERRL ENT: Mucous membranes moist, Conjunctiva normal, No scleral icterus Respiratory: Breath sounds normal, Clear to auscultation, No respiratory distress Cardiovascular: Regular rate & rhythm, Heart sounds normal, Intact distal pulses Abdomen / GI: Soft, Non-tender, No guarding, No rebound, No distention Extremities: Vascular intact, Neuro intact, No swelling, No tenderness Skin: Warm, Dry, No cyanosis Neurologic: Alert, Oriented, Nonfocal Psychiatric: Mood/affect normal, Behavior normal, Normal thought content Interpretation & Diagnostics Lab Results Interpretation Result Diagram: 05/18/17183405/18/171834 Test 05/18/17 18:35 05/18/17 18:41 White Blood Count 9.9th/mm3 (3.8-10.1) Red Blood Count 5.43mil/mm3 (4.40-5.80) Hemoglobin 16.5g/dL (13.8-17.2) Hematocrit 46.8% (41.0-50.0) Mean Corpuscular Volume 86.2fL (81-100) Mean Corpuscular Hemoglobin 30.4pg (27.0-35.0) Mean Corpuscular Hemoglobin Concent 35.3% (32.0-37.0) Red Cell Distribution Width 13.0% (12.3-15.4) Platelet Count 182bil/L (150-400) Neutrophils (%) (Auto) 68.5% (40-74) Lymphocytes (%) (Auto) 16.3% (14-46) Monocytes (%) (Auto) 12.6% (4-12) Eosinophils (%) (Auto) 2.1% (0-5) Basophils (%) (Auto) 0.4% (0-3) Prothrombin Time 11.3sec (8.1-12.5) Prothromb Time International Ratio 1.05ratio Sodium Level 139mEq/L (134-144) Potassium Level 3.8mEq/L (3.5-5.2) Chloride Level 102mEq/L (97-108) Carbon Dioxide Level 20mmol/L (18-29) Blood Urea Nitrogen 27mg/dL (8-27) Creatinine 1.32mg/dL (0.76-1.27) Estimat Glomerular Filtration Rate 58mL/min (>59) Glucose Level 94mg/dL (60-99) Calcium Level 8.8mg/dL (8.5-10.1) Magnesium Level 2.0mg/dL (1.6-2.6) Total Bilirubin 0.4mg/dL (0.0-1.2) Aspartate Amino Transf (AST/SGOT) 21U/L (0-50) Alanine Aminotransferase (ALT/SGPT) 27U/L (0-44) Alkaline Phosphatase 91U/L (25-160) Troponin T < 0.010ug/L (0.0-0.011) Pro-B-Type Natriuretic Peptide 78.49pg/mL (0-376) Total Protein 7.1g/dL (6.4-8.4) Albumin 3.9g/dL (3.4-5.0) Hold Suero Top Tube Received (Received) ECG Interpretation ECG Interpretation: Mild left axis deviation. No acute T wave abnormalities. When compared to prior dated 04/09 2017 pt is no longer bradycardic. Time: 18:06 Interpreted by: ED physician Normal ECG Interpretation: Normal rate (76), Normal sinus rhythm X-Ray Chest Interpretation Chest Xray Interpretation: IMPRESSION: No radiographic evidence of acute cardiopulmonary pathology. Dictated by: Juan Miguel Rivera M.D. on 05/18/2017 at 18:35 View: Portable, AP & lat Interpretation / Wet Read by: Interpret - Radiologist Re-Eval/Medical Decision Med Decision/Clinical Course In summary, the patient is a 66-year-old male with recent NSTEMI after which he was started on multiple medications including metoprolol 25 mg daily presents to the emergency department complaining of generalized fatigue and grogginess ever since hospital discharge. He denies any other symptoms whatsoever. He states that he has complained about his grogginess to his position description manager was been told that "he will get this to his new medications". He states that he called their office today but was not able to get in to be seen and decided to come to the emergency room. He denies any acute symptoms whatsoever and specifically states he has not experienced any chest pain, shortness of breath, palpitations. Here in the emergency department the patient is afebrile, hemodynamically stable , well-appearing in no apparent distress. EKG shows mild left axis deviation. No acute T wave abnormalities. When compared to prior dated 04/09 2017 pt is no longer bradycardic. Chest x ray shows No radiographic evidence of acute cardiopulmonary pathology. Labs notable for CBC unremarkable. CMP unremarkable, troponin negative. Coags normal. Overall presentation at this time is not classically suggestive of acute coronary syndrome. Initial screening EKG, labs and troponin are reassuring. There is no evidence of acute infectious process or electrolyte abnormality that would explain his generalized fatigue. I do suspect that this is likely related to his multiple new medications, specifically being on a beta nataliia. Patient was discussed with the on-call position description manager and his presentation today was reviewed. They have requested that we reduce his metoprolol dose by 50%. They will follow up with him in their clinic later this week. At this time, I see no evidence of any acutely concerning process and the patient does not desire admission or further workup. I feel that he is appropriate for discharge as he has good outpatient follow-up established. Prior to discharge follow-up and return precautions were reviewed in detail with the patient who verbalized understanding and agreement with the plan. The patient was discharged in stable condition. Time of Eval: 19:38 Patient Status: Condition improved Re-Evaluation/Progress Note: Discussed plan for discharge. Pt understands and agrees with plan. Consultation : Referral / Consult Name: Robbi Chu MD Consulted With: Cardiology Call Returned at: 19:41 Counseled Regarding: Diagnosis, Lab results, Need for follow-up, When/why to return to ED Discharge & Departure Primary Impression: Fatigue Fatigue type: unspecified Qualified Code: R53.83 - Other fatigue Additional Impressions: Adverse effect of metoprolol History of MN (myocardial infarction) Disposition: Home Discharge Condition All VS Reviewed: Yes Condition: Improved Additional Instructions: Thank you for seeking care at the emergency room. It is difficult for us to make definitive diagnoses in the ED but we believe that you are experiencing fatigue due to taking metoprolol. Our primary goal today in the ED was to evaluate you for any life-threatening conditions. Your evaluation was reassuring. Please start taking one half tablet (12.5 mg) of metoprolol succinate every morning. You should stop taking the metoprolol tartrate they were previously prescribed. You should follow-up with your position description manager in the next couple of days. You should return to the ED immediately if you develop ongoing/worsening fatigue , lightheadedness, palpitations, fevers, vomiting, cough, shortness of breath, chest pain, lightheadedness, weakness or any other concerning signs or symptoms. Thank you for letting us partake in your care today. Referrals: Rakesh Davidson MD (PCP) Adebayo Germain MD Scribe Attestation Portions of this note were transcribed by Vicki Mcintosh. I, Dr. Abbott personally performed the history, physical exam and medical decision-making; I reviewed and confirmed the accuracy of the information in the transcribed note. Signed by: Moses Red, 05/18/2017. copies to: Rakesh Davisdon MD; Adebayo Germain MD, Beck O MD May 18, 2017 17:51 VICKI MCINTOSH May 18, 2017 19:31
--- NOTE | 2017-05-18 18:37 | DRSVH ---
PROCEDURE: X-RAY CHEST, TWO VIEWS ([id number]) INDICATIONS: weakness TECHNIQUE: 2 views of the chest were acquired. COMPARISON: None. FINDINGS: Surgical changes and devices: None. Lungs and pleura: No pleural effusions or pneumothorax. Lungs are clear. Mediastinum: Mediastinal contours are normal. Heart size is normal. Bones and chest wall: No suspicious bony abnormalities. Soft tissues appear unremarkable. IMPRESSION: No radiographic evidence of acute cardiopulmonary pathology. Dictated by: Juan Miguel Rivera M.D. on 05/18/2017 at 18:35 Approved by: Juan Miguel Rivera M.D. on 05/18/2017 at 18:35
[2017-05-18 18:51] LABS: BASOPHILS % (AUTO) 0.4 % (0-3); EOSINOPHILS % (AUTO) 2.1 % (0-5); MONOCYTES % (AUTO) 12.6 % (4-12); Mean Corpuscular Hemoglobin 30.4 pg (27.0-35.0); Mean Corpuscular Volume 86.2 fL (81-100); NEUTROPHILS % (AUTO) 68.5 % (40-74); Platelet Count 182 bil/L (150-400)
[2017-05-18 19:00] LABS: INR 1.05 ratio
[2017-05-18 19:18] VITALS: BP 110/67; PULSE 68; RESP 18; O2SAT 95
[2017-05-18 19:21] LABS: TROPONIN T < 0.010 ug/L (0.0-0.011)
[2017-05-18] MEDS ORDERED: METO-386 PO (19:43)
[2017-05-18 20:08] VITALS: BP 131/75; PULSE 72; RESP 20; O2SAT 97
== END 2017-05-18 20:09 | disposition home or self-care (01) ==
LOC: SED 17:31
DX: R53.83 Other fatigue (principal); T44.7X5A Adverse effect of beta-adrenoreceptor antagonists, initial encounter; X58.XXXA Exposure to other specified factors, initial encounter; Y93.89 Activity, other specified; Y99.8 Other external cause status; Y92.89 Other specified places as the place of occurrence of the external cause; I25.2 Old myocardial infarction; J45.909 Unspecified asthma, uncomplicated; E78.5 Hyperlipidemia, unspecified; Z87.891 Personal history of nicotine dependence; Z79.51 Long term (current) use of inhaled steroids; Z79.82 Long term (current) use of aspirin

== ENCOUNTER 2017-05-23 16:38 | Emergency (ER) | payer OTHER ==
[~2017-05-23] VITALS: Ht 190.5 cm; Wt 100.5 kg
[~2017-05-23 16:38] MED LIST changes: +METO-386 PO; -METO25TA6 PO
[2017-05-23 17:03] VITALS: BP 134/76; PULSE 62; RESP 16; O2SAT 98
[2017-05-23 17:47] LABS: BASOPHILS % (AUTO) 0.5 % (0-3); EOSINOPHILS % (AUTO) 2.7 % (0-5); MONOCYTES % (AUTO) 11.8 % (4-12); Mean Corpuscular Hemoglobin 30.5 pg (27.0-35.0); NEUTROPHILS % (AUTO) 63.4 % (40-74); Platelet Count 198 bil/L (150-400)
[2017-05-23 18:04] LABS: INR 1.05 ratio
--- NOTE | 2017-05-23 19:44 | ED.REPORT ---
HPI-General Illness Date of Service May 23, 2017 ED Provider: Katie James Radha A 66 year old male on aspirin and Plavix with a history of testosterone injections, NSTEMI diagnosed 04/07/2017, hyperlipidemia and left temporal meningioma status post resection presents to the ED complaining of melena. The pt has been experiencing black stools each time he has a bowel movement for the last four days. The pt denies chest pain, shortness of breath or abdominal pain. He also denies history of stomach ulcers or GI bleed, as well as any use of NSAIDS, iron supplements or steroids other than his baseline testosterone injections. He has not experienced similar symptoms before but admits to recent familial stress. The pt has had a colonoscopy within the last two years but has never had an upper endoscopy. He was seen in the ED four weeks ago and admitted for an NSTEMI. He is scheduled to have a stent within the next few weeks. Nursing Notes Stated Complaint: INTERAL BLEEDING, SENT BY Chief Complaint: General Complaint Nursing Notes Reviewed: Yes Allergies: Coded Allergies: penicillin G (Verified Allergy, Severe, FACIAL SWELLING, 05/26/17) penicillin G procaine (Verified Allergy, Severe, FACIAL SWELLING, 05/26/17) Scheduled Aspirin Chew (Aspirin Chew) 81 Mg Chew 81 MG PO DAILY Atorvastatin Calcium (Atorvastatin Calcium) 40 Mg Tablet 40 MG PO HS Budesonide/Formoterol 80-4.5 mcg Inh (Symbicort 80-4.5 mcg Inh) 120 Puff Inhaler 1 PUFF INHALATION BID Cholecalciferol (Vitamin D3) (Vitamin D3) 5,000 Unit Capsule 5,000 UNIT PO HS Citalopram (Citalopram) 10 Mg Tablet 10 MG PO HS Clopidogrel (Clopidogrel) 75 Mg Tablet 75 MG PO DAILY Lisinopril (Lisinopril) 5 Mg Tablet 2.5 MG PO BID Loratadine (Loratadine) 10 Mg Capsule 10 MG PO HS Metoprolol Succinate ER (Metoprolol Succinate ER) 25 Mg Tab.er.24h 12.5 MG PO DAILY Montelukast (Montelukast) 10 Mg Tablet 10 MG PO HS Omeprazole (Omeprazole) 20 Mg Capsule.dr 40 MG PO BID Testosterone Cypionate (Testosterone Cypionate) 200 Mg/1 Ml Vial 200 MG IM [id number] Scheduled PRN Albuterol HFA (Proair HFA) 8.5 Gm Hfa.aer.ad 2 PUFFS INHALATION Q4H PRN PRN For Shortness of Breath Nitroglycerin SL (Nitrostat) 0.4 Mg Tab.subl 0.4 MG SL Q5MIN PRN PRN For Chest Pain IF SBP > 90 General Time Seen by MD: 19:43 Chief Complaint Other (Melena) Hx Obtained From: Patient Arrived By: Walk-in Sudden in Onset?: No Onset Occurred: 4 days ago Symptom Duration: Intermittent Recent Healthcare: Recent doctor visit Similar Sx Previous: No Past Medical History Past Medical History Recent NSTEMI 04/07/2017 Obstructive sleep apnea, CPAP compliant Hyperlipidemia Low testosterone, on treatment for 20 years Restless leg syndrome Depression Allergic asthma Left temporal meningioma status post resection Past Surgical History Left temporal meningioma resection 2014 Colonoscopy March 2016 Smoking History Former Smoker, Never Smoker Social History Patient's is a resident at [facility]. Alcohol Use: Denies alcohol use Drug Use: Denies drug use Ambulatory Status Independent Review of Systems melena Full Review of Systems Respiratory: Denies: Non-productive cough, Shortness of breath Cardiovascular: Denies: Chest pain GI: Denies: Abdominal pain, Diarrhea, Vomiting Musculoskeletal: Denies: Back pain, Neck pain Skin: Denies Rash Complete sys rev & neg: except as marked. Physical Exam Vital Signs Vital Signs Date Time Temp Pulse Resp B/P Pulse Ox O2 Delivery O2 Flow Rate FiO2 05/23/17 20:41 36.6 68 16 128/70 98 Room Air 05/23/17 17:03 36.3 62 16 134/76 98 Room Air Initial VS: Reviewed General/Constitutional: Awake, Alert Head / Eyes: Atraumatic, Normocephalic, PERRL, EOMI ENT: Atraumatic, Airway patent, Mucous membranes moist Neck: Atraumatic, Supple, Full range of motion Respiratory / Chest: Atraumatic, Breath sounds NL, Breath sounds = bilat, No respiratory distress Cardiovascular: Heart rate NL, Regular rhythm, Heart sounds NL Abdomen: Atraumatic, Soft, Non-tender, BS normoactive, No distention Back: Atraumatic, Full range of motion Upper Extremities Upper Extremity / MS: Atraumatic, Full range of motion Lower Extremity / Pelvis / MS: Atraumatic, Full range of motion, No edema Skin: Atraumatic, Color NL, No rash, Warm, Dry Rectum / Perineum: No gross blood, No mass guaiac positive Neurologic: Oriented X3, Speech NL, No motor deficits, No sensory deficits Psychiatric: Affect NL, Mood NL Interpretation & Diagnostics Lab Results Interpretation Result Diagram: 05/23/172 05/23/17 1742 Test 05/23/17 17:42 White Blood Count 7.3th/mm3 (3.8-10.1) Red Blood Count 4.26mil/mm3 (4.40-5.80) Hemoglobin 13.0g/dL (13.8-17.2) Hematocrit 37.9% (41.0-50.0) Mean Corpuscular Volume 89.0fL (81-100) Mean Corpuscular Hemoglobin 30.5pg (27.0-35.0) Mean Corpuscular Hemoglobin Concent 34.3% (32.0-37.0) Red Cell Distribution Width 13.4% (12.3-15.4) Platelet Count 198bil/L (150-400) Neutrophils (%) (Auto) 63.4% (40-74) Lymphocytes (%) (Auto) 21.3% (14-46) Monocytes (%) (Auto) 11.8% (4-12) Eosinophils (%) (Auto) 2.7% (0-5) Basophils (%) (Auto) 0.5% (0-3) Prothrombin Time 11.2sec (8.1-12.5) Prothromb Time International Ratio 1.05ratio Sodium Level 138mEq/L (134-144) Potassium Level 3.8mEq/L (3.5-5.2) Chloride Level 101mEq/L (97-108) Carbon Dioxide Level 24mmol/L (18-29) Blood Urea Nitrogen 23mg/dL (8-27) Creatinine 1.25mg/dL (0.76-1.27) Estimat Glomerular Filtration Rate 62mL/min (>59) Glucose Level 70mg/dL (60-99) Calcium Level 8.7mg/dL (8.5-10.1) Total Bilirubin 0.3mg/dL (0.0-1.2) Aspartate Amino Transf (AST/SGOT) 23U/L (0-50) Alanine Aminotransferase (ALT/SGPT) 23U/L (0-44) Alkaline Phosphatase 78U/L (25-160) Total Protein 6.9g/dL (6.4-8.4) Albumin 3.8g/dL (3.4-5.0) Hold Suero Top Tube Received (Received) Re-Eval/Medical Decision Med Decision/Clinical Course 66-year-old male with no previous GI history presents with melena 4 days. His hemoglobin is only mildly reduced at 13.0. He is asymptomatic and stable from a hemodynamic standpoint. I increased his PPI from 20 mg to 40 mg twice a day and advised follow-up with GI. Patient states he needs to be cleared prior to having an angiogram. The identifiable risk factors for gastritis/gastric ulcer/ upper GI bleed include taking Plavix and stress he is having his life. Source of Hx: Old records Time of Eval: 19:43 Patient Status: Condition improved Re-Evaluation/Progress Note: Pt is informed of the diagnosis and plan for discharge during the initial interview. The pt understands and agrees with the plan. All questions are addressed at this time. Counseled Regarding: Diagnosis, Lab results, Need for follow-up, When/why to return to ED Discharge & Departure Primary Impression: Upper GI bleed Additional Impression: Melena Disposition: Home Discharge Condition All VS Reviewed: Yes Condition: Stable Patient Instructions: Gastrointestinal Bleeding (ED) Additional Instructions: Thank you for entrusting us with your care. Your evaluation was reassuring and the bleed appears to be slow. Your hemoglobin was 13.0. Increase your Omeprazole to 40 mg twice a day. Call in the morning to arrange follow up with gastroenterology (Dr. Cruz). Call your primary care physician to arrange a follow up appointment in the next several days. Return to the emergency department if you develop any new or worsening symptoms including lightheadedness, dizziness, or worsening bleeding. Referrals: Rakesh Davidson MD (PCP) Dionisio Cruz MD Scribe Attestation Portions of this note were transcribed by Lynn Bueno. I, Dr. Wilson personally performed the history, physical exam and medical decision-making; I reviewed and confirmed the accuracy of the information in the transcribed note. copies to: Dionisio Cruz MD; Rakesh Davidson MD, Gary R DO May 23, 2017 19:44 LYNN BUENO May 23, 2017 20:07
[2017-05-23 20:41] VITALS: BP 128/70; PULSE 68; RESP 16; O2SAT 98
== END 2017-05-23 20:44 | disposition home or self-care (01) ==
LOC: SED 16:38
DX: K92.2 Gastrointestinal hemorrhage, unspecified (principal); K92.1 Melena; E78.5 Hyperlipidemia, unspecified; I25.2 Old myocardial infarction; Z87.891 Personal history of nicotine dependence; Z79.82 Long term (current) use of aspirin; Z88.0 Allergy status to penicillin

== ENCOUNTER → 2017-05-26 | Day surgery (SDC) | payer OTHER ==
[~2017-05-26] VITALS: Ht 190.5 cm; Wt 101.6 kg
[~2017-05-26] MED LIST changes: +Lactated Ringer's 1,000 ML IV ONE; +Propofol 10,000 mCg/mL 20 mL Inj ONE; +fentaNYL-PF 50 mCg/mL 2 mL Inj ONE
[2017-05-26 10:15] VITALS: BP 121/74; PULSE 59; RESP 16; O2SAT 98
[2017-05-26 11:02] VITALS: BP 88/56; PULSE 47; RESP 15; O2SAT 95
--- NOTE | 2017-05-26 11:02 | PCM.ENDEGD ---
EGD Date of Service: May 26, 2017 Physician Dionisio Cruz MD Pre Procedure Diagnosis: Melena Post Procedure Dx & Findings: Esophageal ulcer hiatal hernia fundic polyps Procedure Esophagogastroduodenoscopy PROCEDURE IN DETAIL: Anesthesia by anesthesiology After proper sedation, Olympus video endoscope was inserted into patient's mouth and esophagus was successfully intubated. Scope introduced esophagus. Esophagus showed normal shiny whitish mucosa consistent with squamous cell component. Z line was at 40 cm from the incisors. The esophagus showed a 3 cm hiatal hernia. The Z line was irregular and some scarring noted. There was a 1 cm clean-based ulcer without any stigmata. Scope further advanced to the stomach. Stomach showed normal shiny mucosa with normal appearing rugae folds without any ulcer mass erosion. Cardia fundus body antrum pylorus were all visualized. Retroflexion was done. Patient had many fundic polyps most are less than 1 cm in size. Stomach was easily inflated and deflatable using air. Scope further advanced to the distal duodenum. Duodenum revealed normal villous structures with normal appearing folds without any mass ulcer erosion. Impression Clean-based esophageal ulcer with surrounding scarring Hiatal hernia Fundic polyps No biopsy taken due to his melena and the fact that is on aspirin and Plavix. Recommendation Continue PPI. Avoid NSAIDs. EGD in 10 weesks to confirm healing. Presedation Assessment Risks and Benefits Informed consent was obtained from the patient after all risks and benefits including but not limited to drug reaction, infection, pain, bleeding, perforation, as well as alternatives were discussed. Patient monitoring Continuous pulse oximetry, cardiac monitoring, blood pressure monitoring, IV access, and oxygen at 2L per nasal cannula. Complications There were no periprocedural complications identified. Post Procedure Plan Post Procedure Recommendations 1. Restrict activities today. 2. Resume normal activities in the morning. 3. Resume medications. 4. GERD behavioral modification: - Avoid fatty, acidic, spicy, large meals - Do not lie down after meals - Do not eat or drink anything for at least 2 1/2 hours before going to bed at night - Discontinue tobacco and alcohol - Decrease or avoid caffeine - Avoid chocolate and mints - Decrease weight - Avoid aspirin and non steroidal anti-inflammatory agents (NSAID) such as Aleve, Advil, Mobic, Naproxen, Ibuprofen, etc 5. Add proton pump inhibitor. Take 30 minutes before 1st meal of the day. 6. Patient informed of normal post procedure side effects as bloating, drowsiness, blood streaking in the stool 7. If gastric biopsy reveal H.pylori, continue with appropriate treatment 8. If small bowel biopsy reveals celiac, continue with appropriate treatment 9. Please don't hesitate to call me with any questions Dionisio Cruz MD May 26, 2017 11:02
[2017-05-26 11:13] VITALS: BP 105/65; PULSE 57; RESP 16; O2SAT 97
[2017-05-26 11:23] VITALS: BP 141/77; PULSE 55; RESP 16; O2SAT 98
== END | disposition home or self-care (01) ==
LOC: END 09:55
PROVIDERS: ATTEND Internal Medicine
DX: K92.1 Melena (principal); K22.10 Ulcer of esophagus without bleeding; K44.9 Diaphragmatic hernia without obstruction or gangrene; K31.7 Polyp of stomach and duodenum; I21.4 Non-ST elevation (NSTEMI) myocardial infarction; G25.81 Restless legs syndrome; F32.9 Major depressive disorder, single episode, unspecified; G47.00 Insomnia, unspecified; E78.5 Hyperlipidemia, unspecified; G47.33 Obstructive sleep apnea (adult) (pediatric); Z79.82 Long term (current) use of aspirin; Z79.01 Long term (current) use of anticoagulants; Z79.51 Long term (current) use of inhaled steroids
CPT/HCPCS: 43235; J2704; J3010; J7120